=== PATIENT | female | born 1970 | race African-American/Black ===

== ENCOUNTER 2017-03-31 14:52 | Emergency (ER) | payer SELFPAY ==
[2017-03-31] MEDS ORDERED: NORMAL SALINE 1000 ML 1,000 ML IV PRN (15:34)
--- NOTE | 2017-03-31 15:35 | ER Document Report ---
ED Medical Screen (RME) - General Chief Complaint: Pain All Over Stated Complaint: JOINT PAIN Time seen by provider: 15:34 Mode of Arrival: Ambulatory Information source: Patient Notes: This is a 47-year-old female with a history of anemia, but gastric bypass who presents to the emergency room with increasing fatigue and weight loss over the past week. Patient states she has no energy. Review of systems does reveal diffuse body aches and joint pains for the past several months. TRAVEL OUTSIDE OF THE [place] IN LAST 30 DAYS: No - HPI Onset: Last week Onset/Duration: Gradual Quality of pain: No pain Severity: None Pain Level: Denies Associated Symptoms: None Exacerbated by: Denies Relieved by: Denies Similar symptoms previously: Yes Recently seen / treated by doctor: No - Related Data Smoking: Non-smoker Frequency of alcohol use: None Drug Abuse: None Allergies/Adverse Reactions: No Known Allergies Allergy (Verified 03/31/17 15:10) Past Medical History - General Information source: Patient - Social History Cigarette use (# per day): No Chew tobacco use (# tins/day): No Frequency of alcohol use: None Drug Abuse: None Lives with: Family Family history: None Pulmonary Medical History: Reports: Hx Asthma Renal/ Medical History: Denies: Hx Peritoneal Dialysis Past Surgical History: Reports: Hx Abdominal Surgery - bowel resection, Hx Gastric Bypass Surgery - Immunizations Immunizations up to date: Yes Hx Diphtheria, Pertussis, Tetanus Vaccination: Yes Review of Systems - Review of Systems Constitutional: denies: Chills, Fever EENT: No symptoms reported Cardiovascular: No symptoms reported Respiratory: No symptoms reported Gastrointestinal: No symptoms reported Genitourinary: No symptoms reported Female Genitourinary: No symptoms reported Musculoskeletal: See HPI Skin: No symptoms reported Hematologic/Lymphatic: No symptoms reported Neurological/Psychological: See HPI, Other - Fatigue weakness Physical Exam - Vital signs Vitals: Temp Pulse Resp BP Pulse Ox 98.3 F 64 18 168/98 H 100 03/31/17 15:15 03/31/17 15:15 03/31/17 15:15 03/31/17 15:15 03/31/17 15:15 Notes: Physical exam: GENERAL: 47-year-old female, alert and oriented 3, no acute distress. HEAD: Atraumatic, normocephalic. EYES: Pupils equal round and reactive to light, extraocular movements intact, sclera anicteric, conjunctiva are normal. ENT: TMs normal, nares patent, oropharynx clear without exudates. Moist mucous membranes. NECK: Normal range of motion, supple without lymphadenopathy or JVD. LUNGS: Breath sounds clear to auscultation bilaterally and equal. No wheezes rales or rhonchi. HEART: Regular rate and rhythm without murmurs, rubs or gallops. ABDOMEN: Soft, normoactive bowel sounds. No tenderness to palpation. No guarding, no rebound. No masses appreciated. EXTREMITIES: Normal range of motion, no pitting or edema. No clubbing or cyanosis. NEUROLOGICAL: Cranial nerves II through XII grossly intact. Normal speech, normal gait. PSYCH: Normal mood, normal affect. SKIN: Warm, Dry, normal turgor, no rashes or lesions noted. Course - Vital Signs Vital signs: Temp Pulse Resp BP Pulse Ox 97.9 F 62 18 142/79 H 99 03/31/17 18:22 03/31/17 18:22 03/31/17 15:15 03/31/17 18:22 03/31/17 18:22 - Laboratory Result Diagrams: 03/31/17 16:10 03/31/17 17:00 Laboratory results interpreted by me: 03/31/17 03/31/17 03/31/17 16:10 16:10 17:00 RBC 2.93 L Hgb 11.1 L Hct 32.1 L MCV 110 H MCH 37.8 H RDW 16.5 H Potassium 5.4 H Urine Urobilinogen 2.0 H Ur Leukocyte Esterase TRACE H Doctor's Discharge - Discharge Clinical Impression: fatigue, joint pain, anemia Condition: Stable Disposition: HOME, SELF-CARE Instructions: Anemia ([facility]), Arthralgia ([facility]) Additional Instructions: As we discussed, your labs did show some mild anemia. I think the gum if there is with iron is a good option. You're kidney function tests looked good. There is no evidence of diabetes and your blood and urine electrolytes were good. Recommendations: I would like you to follow-up with a primary care doctor: Given the caring [facility] clinic number call. It may take a little while to get into the initial visit. But you do have some baseline studies. Keep these records for a few for reference in the future. I've written a prescription for Solu-Medrol which may help for the joint pain. Do not take Aleve while you're on the steroid. After the steroid is finished, you could use Aleve as you have been. He could always return to the emergency room for worsening symptoms. Prescriptions: Methylprednisolone [Medrol 4 mg Dosepack 21 Tab/Pack] 4 mg PO ASDIR PRN #[id number] [email or web address] PRN Reason: Forms: Return to Work Referrals: [facility] [Provider Group] - Follow up as needed
[2017-03-31 16:46] LABS: ABSOLUTE EOSINOPHILS # (AUTO) 0.2 10^3/uL (0.0-0.6); ABSOLUTE LYMPHOCYTES (AUTO) 0.8 10^3/uL (0.5-4.7); ABSOLUTE MONOCYTES (AUTO) 0.4 10^3/uL (0.1-1.4); BASOPHILS % (AUTO) 0.6 % (0-2); EOSINOPHILS % (AUTO) 4.4 % (0-6); HEMATOCRIT 32.1 % (36.0-47.0); HEMOGLOBIN 11.1 g/dL (12.0-15.5); HGB HCT DIFFERENCE 1.2; LYMPHOCYTES % (AUTO) 17.8 % (13-45); MEAN CORPUSCULAR HEMOGLOBIN 37.8 pg (27.0-33.4); MEAN CORPUSCULAR HGB CONC 34.4 g/dL (32.0-36.0); MEAN CORPUSCULAR VOLUME 110 fl (80-97); MONOCYTES % (AUTO) 9.9 % (3-13); RED BLOOD COUNT 2.93 10^6/uL (3.72-5.28); RED CELL DISTRIBUTION WIDTH 16.5 % (11.5-14.0); SEGMENTED NEUTROPHILS % (AUTO) 67.3 % (42-78); WHITE BLOOD COUNT 4.4 10^3/uL (4.0-10.5)
[2017-03-31 17:20] LABS: APPEARANCE,URINE SLIGHTLY-CLOUDY; BILIRUBIN,URINE NEGATIVE (NEGATIVE); GLUCOSE, URINE NEGATIVE (NEGATIVE); KETONES,URINE NEGATIVE (NEGATIVE); LEUKOCYTE ESTERASE,URINE TRACE (NEGATIVE); NITRITE,URINE NEGATIVE (NEGATIVE); PROTEIN,URINE NEGATIVE (NEGATIVE); URINE SPECIFIC GRAVITY 1.021
[2017-03-31 17:23] LABS: ALANINE AMINOTRANSFERASE 20 U/L (9-52); ALBUMIN 3.7 g/dL (3.5-5.0); ALKALINE PHOSPHATASE 64 U/L (38-126); ANION GAP 11 (5-19); ASPARTATE AMINO TRANSFERASE 21 U/L (14-36); BILIRUBIN,DIRECT 0.4 mg/dL (0.0-0.4); BLOOD UREA NITROGEN 15 mg/dL (7-20); CALCIUM 9.5 mg/dL (8.4-10.2); CARBON DIOXIDE 23 mmol/L (22-30); CHLORIDE 107 mmol/L (98-107); CREATINE KINASE 31 U/L (30-135); CREATININE RESULT 0.72 mg/dL (0.52-1.25); GLUCOSE 86 mg/dL (75-110); POTASSIUM 5.4 mmol/L (3.6-5.0); SODIUM 141.1 mmol/L (137-145); TOTAL PROTEIN 8.1 g/dL (6.3-8.2)
[2017-03-31 18:24] VITALS: BP 142/79
== END 2017-03-31 18:24 | disposition home or self-care (01) ==
LOC: ER 14:52
DX: R53.83 Other fatigue (principal); M25.50 Pain in unspecified joint; D64.9 Anemia, unspecified; R52 Pain, unspecified
CPT/HCPCS: 36415; 80053; 81001; 82550; 84443; 85025; 99283

== ENCOUNTER 2020-05-27 06:00 | Emergency (ER) | payer SELFPAY | END 2020-05-27 06:28 | disposition left against medical advice (07) | LOC: ER 06:00 | DX: Z53.21 Procedure and treatment not carried out due to patient leaving prior to being seen by health care provider (principal); K59.00 Constipation, unspecified ==